=== PATIENT | male | born 1965 | race Caucasian/White ===

== ENCOUNTER 2022-03-21 12:16 | Outpatient (CLI) | payer OTHER, SELFPAY ==
--- NOTE | 2022-03-31 14:07 | WPDPFTINT ---
PFT Procedure Performed PFT Procedure Performed Plethysmography (Lung Vol) Diffusing Cap (DLCO) Flow Vol Loop Spirometry w/o Bronchodil PFT Interpretation DOS: 03/21/2022 REQUESTING: Melinda Bill PA-C REASON FOR TESTING: Chronic cough PULMONARY FUNCTION TESTS Results are reliable and reproducible. Spirometry: FEV1 is 2.34 L, 60%, reduced. FVC 3.94 L, 79% normal. FEV1/FVC 59% reduced, consistent with airflow obstruction. FEF 25-75 is 30% 1.02 L, this is extremely low. No bronchodilator was given. Lung volumes: Total lung capacity 6.44 L, 90%, normal. Residual volume 2.51 L, 115%, normal. RV/TLC 39%, upper limit normal. Airway resistance 220% elevated. Diffusion: DLCO 16.2, 54%, moderately decreased. DLCO/VA is 4.28, 99%, normal. Flow volume loop: There is coving of the expiratory limb consistent with airflow obstruction. IMPRESSION: There is a moderate obstructive ventilatory impairment with a moderate diffusion impairment. No bronchodilator was given. This pattern suggests emphysema. Sonia Adan MD
== END 2022-03-21 12:17 | disposition home or self-care (01) ==
PROVIDERS: Visit Provider Physician Assistant
DX: R05.3 Chronic cough (principal)
CPT/HCPCS: 94060; 94726; 94729